=== PATIENT | male | born 1950 ===

== ENCOUNTER 2017-10-13 12:27 | Day surgery (SDC) | payer MEDICARE, BC ==
[~2017-10-13] VITALS: Ht 180.3 cm; Wt 105.1 kg
[~2017-10-13 12:27] MED LIST: ALBU90OI61 INH; AMIT25 PO; AMLO5 PO; AMOCLA875 PO; AMOX500; AMOX500 PO; AMOX875 PO; ASPI325 PO; ASPI81CH PO; ASPIRIN; ATEN100; ATEN25; ATEN25 PO; ATEN50; ATOR20 PO; CEFD300 PO; CHOL10002 PO; CILO50 PO; CLOM50A PO; CLON.5; CLON1; CLON1 PO; CLOP75; CLOP75 PO; CYAN1000; CYAN1000 PO; Cilostazol50 MG PO; DOCU100 PO; Depo-Testos200 MG/ML IM; ETOD400; FISH1000 PO; FOLI1 PO; FURO40 PO; GABA100; GABA100 PO; GABA300; HYDACE10B; HYDACE10B PO; HYDACE5; HYDACE5 PO; HYDCHL12.5 PO; HYDR1TAB94 PO; ISOMON30 PO; Isosorbide Mono60 MG PO; K-Dur20 MEQ PO; LEVE500 PO; LEVO750 PO; LEVSOD50 PO; LEVSOD75 PO; LISI10; LOSHYD; Lasix20 MG PO; METH10 PO; METO50ER PO; MIRT15 PO; MIRT15ST; NITR.4SL; NITR.4SL SL; OMEGA-3; OMEP20ER; OMEP20ER PO; PANT40 PO; PARO25; POLY17UD; POLY17UD PO; POTCHL20ER PO; Prilosec Otc20 MG PO; RABE20; ROSU10TA; ROSU10TA PO; SPIHYD; SULTRIDS PO; TAMS.4ER; TAMS.4ER PO; UROXATRAL; UROXATROL PO; VENL150ER PO; WARF3; XARELTO15 MG PO; ZOLP5 PO
[2017-10-13] MEDS ORDERED: CLON.1 (13:17)
[2017-10-13] MEDS ORDERED: IRBE75 (13:18)
== END 2017-10-13 14:49 | disposition home or self-care (01) ==
LOC: ORSCSDS 12:27
PROVIDERS: Internal Medicine Gastroenterology
PROC: 0DJ08ZZ Inspection of Upper Intestinal Tract, Via Natural or Artificial Opening Endoscopic (ICD-10-PCS; principal; 2017-10-13 14:00)
DX: R19.5 Other fecal abnormalities (principal); K25.4 Chronic or unspecified gastric ulcer with hemorrhage; D64.9 Anemia, unspecified; I25.10 Atherosclerotic heart disease of native coronary artery without angina pectoris; I10 Essential (primary) hypertension; G47.30 Sleep apnea, unspecified; E78.00 Pure hypercholesterolemia, unspecified; E66.9 Obesity, unspecified; Z68.32 Body mass index [BMI] 32.0-32.9, adult; F17.210 Nicotine dependence, cigarettes, uncomplicated; Z79.82 Long term (current) use of aspirin; Z79.899 Other long term (current) drug therapy
CPT/HCPCS: J2250; J7120

== ENCOUNTER 2017-10-31 06:30 | Observation (INO) | payer MEDICARE, BC ==
[~2017-10-31 06:30] MED LIST changes: +ALLO100 PO; +Bactrim Ds Tab1 EACH PO; +CLON.1 PO; +IRBE150 PO; +Omeprazole20 M1 PO; +Venlafaxine HC225 MG PO
[2017-10-31] MEDS ORDERED: VARE1 PO (07:14)
[2017-11-01 05:34] LABS: Anion Gap 8 mmol/L (6-16); Blood Urea Nitrogen 18 mg/dL (8-24); Bun/Creatinine Ratio 18.9 (12.0-20.0); CO2, Blood 23 mmol/L (21-32); Chloride, Blood 110 mmol/L (98-108); Creatinine, Blood 0.95 mg/dL (0.60-1.20); Glomerular Filtration Rate >60 (60-); Glucose, Blood 85 mg/dL (70-99); Sodium, Blood 141 mmol/L (136-145)
[2017-11-01] MEDS ORDERED: XARELTO15 MG PO (09:23)
[2017-11-01] MEDS ORDERED: CLOP75 PO (10:04)
== END 2017-11-01 10:13 | disposition home or self-care (01) ==
LOC: MHTC 06:30 → ICUW 15:05 → MHTC 15:31 → ICUW 15:31
PROVIDERS: Internal Medicine Interventional Cardiology
DX: I73.9 Peripheral vascular disease, unspecified (principal); M10.9 Gout, unspecified; L97.519 Non-pressure chronic ulcer of other part of right foot with unspecified severity; I10 Essential (primary) hypertension; I25.10 Atherosclerotic heart disease of native coronary artery without angina pectoris; I48.2 Chronic atrial fibrillation; F17.210 Nicotine dependence, cigarettes, uncomplicated; E78.5 Hyperlipidemia, unspecified; Z79.899 Other long term (current) drug therapy; Z79.82 Long term (current) use of aspirin
CPT/HCPCS: 0238T; 36415; 37186; 37221; 37227; 37228; 75625; 75710; 75774; 76937; 80048; 85347; 99152; 99153; C1714; C1725; C1757; C1769; C1874; C1876; C1884; C1885; C1887; C1894; C2623; G0378; J0690; J1200; J1644; J1720; J2250; J2720; J3010; J7030; J7040; Q9967

== ENCOUNTER → 2018-02-27 | Outpatient (CLI) | payer MEDICARE, BC ==
[~2018-02-27] MED LIST changes: +VARE1 PO
== END | disposition home or self-care (01) ==
LOC: LAB EV 10:54 → LAB SHORT 10:54
DX: N39.0 Urinary tract infection, site not specified (principal)
CPT/HCPCS: 87086

== ENCOUNTER 2018-06-12 08:35 | Day surgery (SDC) | payer MEDICARE, BC ==
[~2018-06-12] VITALS: Ht 177.8 cm; Wt 113.0 kg
[~2018-06-12 08:35] MED LIST changes: +CEPH500 PO; +CVS IRON PO; -GABA100 PO; +GABA300 PO; +Hydrocodone-Ap1 EA20 PO; -LEVSOD75 PO; +LEVSOD88 PO
[2018-06-12] MEDS ORDERED: ELIQUIS5 MG PO (15:56)
--- NOTE | 2018-06-12 16:10 | NUR ---
Discharge PT REMAINED A&OX3 AND DENIED ANY PAIN DURING RECOVERY. PRESCIPTIONS CALLED INTO [facility] ON [address] BY THIS NURSE. PT ABULATED TO RESTROOM AND DRESSED SELF INDEPENDANTLY. IV DC'D WITH TIP IN TACT. DISCHARGE PAPERWORK GONE OVER WITH PT. PT STATED THE UNDERSTANDING OF THE DISCHARGE EDCUATION GIVEN AND DENIED ANY QUESTIONS AT THIS TIME. PT WHEELED OUT BY THIS NURSE.
--- NOTE | 2018-06-12 16:14 | NUR ---
PLAVIX PLAVIX 300MG PO GIVEN TO PT.
--- NOTE | 2018-06-12 16:54 | NUR ---
PT WHEELED OUT BY THIS NURSE AT THIS TIME.
== END 2018-06-12 16:50 | disposition home or self-care (01) ==
LOC: MHTC 08:35
DX: I73.9 Peripheral vascular disease, unspecified (principal); G62.9 Polyneuropathy, unspecified; Z91.041 Radiographic dye allergy status; Z91.048 Other nonmedicinal substance allergy status; I10 Essential (primary) hypertension; I25.10 Atherosclerotic heart disease of native coronary artery without angina pectoris; Z89.421 Acquired absence of other right toe(s); Z79.899 Other long term (current) drug therapy; Z45.2 Encounter for adjustment and management of vascular access device
CPT/HCPCS: 37186; 37225; 37228; 37232; 75625; 75716; 75774; 76937; 99152; 99153; C1724; C1725; C1757; C1760; C1769; C1884; C1887; C1894; C2623; J1200; J1644; J1720; J2250; J2997; J3010; J7030; J7040; Q9967

== ENCOUNTER → 2018-07-10 | Outpatient (CLI) | payer MEDICARE, BC ==
[~2018-07-10] MED LIST changes: +ELIQUIS5 MG PO
== END | disposition home or self-care (01) ==
LOC: LAB SHORT 11:50 → LAB EV 11:50
DX: R30.0 Dysuria (principal)
CPT/HCPCS: 87086

== ENCOUNTER → 2018-08-03 | Outpatient (CLI) | payer MEDICARE, BC | END | disposition home or self-care (01) | LOC: LAB 11:51 → LAB SHORT 11:51 | DX: L97.509 Non-pressure chronic ulcer of other part of unspecified foot with unspecified severity (principal) | CPT/HCPCS: 87070; 87075; 87205 ==

== ENCOUNTER → 2018-08-22 | Outpatient (CLI) | payer MEDICARE, BC | END | disposition home or self-care (01) | LOC: LAB SHORT 12:15 → LAB 12:15 | DX: N39.0 Urinary tract infection, site not specified (principal) | CPT/HCPCS: 87086 ==

== ENCOUNTER → 2018-09-06 | Outpatient (CLI) | payer MEDICARE, BC | END | disposition home or self-care (01) | LOC: LAB SHORT 14:18 → LAB 14:18 | DX: M86.179 Other acute osteomyelitis, unspecified ankle and foot (principal) | CPT/HCPCS: 87070; 87075; 87205 ==

== ENCOUNTER 2018-09-11 07:31 | Day surgery (SDC) | payer MEDICARE, BC ==
[~2018-09-11] VITALS: Ht 177.8 cm; Wt 112.4 kg
[2018-09-11] MEDS ORDERED: ATEN50 PO (08:06)
--- NOTE | 2018-09-11 08:20 | NUR ---
09/11/18 0820 Karen Odonnell V PT RETING IN BED, SIDE RAILS IN PLACE, CALL LIGHT WITHIN REACH, VSS, PT'S AT BEDSIDE. PT TEACHING COMPLETED. PT DENIES PAIN, DISCOMFORT AND QUESTIONS AT THIS TIME.
--- NOTE | 2018-09-11 09:34 | NUR ---
09/11/18 0934 Karen Odonnell V [address] BEAL
== END 2018-09-11 10:23 | disposition home or self-care (01) ==
LOC: ORSCSDS 07:31
PROVIDERS: Internal Medicine Gastroenterology
PROC: 0DJ08ZZ Inspection of Upper Intestinal Tract, Via Natural or Artificial Opening Endoscopic (ICD-10-PCS; principal; 2018-09-11 09:00)
DX: K92.1 Melena (principal); K92.2 Gastrointestinal hemorrhage, unspecified; I10 Essential (primary) hypertension; E78.00 Pure hypercholesterolemia, unspecified; I25.10 Atherosclerotic heart disease of native coronary artery without angina pectoris; Z95.1 Presence of aortocoronary bypass graft; I48.0 Paroxysmal atrial fibrillation; G47.33 Obstructive sleep apnea (adult) (pediatric); F17.210 Nicotine dependence, cigarettes, uncomplicated; Z79.01 Long term (current) use of anticoagulants; Z79.899 Other long term (current) drug therapy
CPT/HCPCS: J2704; J7120

== ENCOUNTER 2019-02-04 20:21 | Inpatient (IN) | payer MEDICARE, BC ==
[~2019-02-04] VITALS: Ht 177.8 cm; Wt 114.9 kg
[~2019-02-04 20:21] MED LIST changes: +ATEN100 PO; -LEVSOD88 PO; +Synthroid88 MCG PO
[2019-02-04] MEDS ORDERED: OXYB5 PO (20:37)
[2019-02-04 20:55] LABS: BASOPHILS ABSOLUTE AUTO 0.08 K/mm3 (0.00-0.23); BASOPHILS PERCENT AUTO 1 % (0-2); EOSINOPHILS ABSOLUTE AUTO 0.27 K/mm3 (0.00-0.68); EOSINOPHILS PERCENT AUTO 3 % (0-6); Hematocrit 34.8 % (37.0-53.0); Hemoglobin 11.4 g/dL (13.5-17.5); IMMATURE GRAN ABSOLUTE AUTO 0.05 K/mm3 (0.00-0.10); IMMATURE GRAN PERCENT AUTO 1 % (0-1); LYMPHOCYTES ABSOLUTE AUTO 1.18 K/mm3 (0.84-5.20); LYMPHOCYTES PERCENT AUTO 12 % (21-46); MONOCYTES ABSOLUTE AUTO 0.91 K/mm3 (0.16-1.47); MONOCYTES PERCENT AUTO 9 % (4-13); Mean Corpuscular HGB 34.5 pg (26.0-34.0); Mean Corpuscular HGB Conc 32.8 g/dL (31.5-36.5); Mean Corpuscular Volume 106 fL (80-100); Mean Platelet Volume 11.2 fL (9.1-12.4); NEUTROPHILS ABSOLUTE AUTO 7.63 K/mm3 (1.96-9.15); NEUTROPHILS PERCENT AUTO 75 % (41-73); Platelet Count 144 K/mm3 (150-400); RDW Coefficient Variation 14.1 % (11.7-14.2); RDW Standard Deviation 54.9 fL (35.1-46.3); White Blood Cell Count 10.12 K/mm3 (4.00-11.30)
[2019-02-04 21:19] LABS: Alanine Aminotransfer (ALT/SGP 58 U/L (12-78); Albumin, Blood 3.7 g/dL (3.4-5.0); Albumin/Globulin Ratio 0.9 (0.8-1.8); Alk Phos 98 U/L (50-136); Anion Gap 8 mmol/L (6-16); Aspartate Aminotrans (AST/SGOT 99 U/L (12-37); Bilirubin, Total 1.3 mg/dL (0.1-1.0); Blood Urea Nitrogen 27 mg/dL (8-24); Bun/Creatinine Ratio 21.6 (12.0-20.0); CO2, Blood 21 mmol/L (21-32); Calcium, Blood 9.8 mg/dL (8.5-10.1); Chloride, Blood 103 mmol/L (98-108); Creatinine, Blood 1.25 mg/dL (0.60-1.20); Globulin, Blood 4.3 g/dL (2.2-4.0); Glomerular Filtration Rate >60 (60-); Glucose, Blood 113 mg/dL (70-99); Sodium, Blood 132 mmol/L (136-145)
[2019-02-04 21:47] LABS: International Normalized Ratio 1.02; Prothrombin Time Results 10.8 Sec (9.7-11.5)
[2019-02-04 22:05] LABS: CHOL/HDL RATIO 4.7; Cholesterol 165 mg/dL (50-200); HDL Cholesterol 35 mg/dL (>39); LDL/HDL RATIO 1.8; Low Density Lipoprotein Chol 62 mg/dL (0-110); Triglycerides 338 mg/dL (30-160); Very Low Density Lipoprot Chol 67 mg/dL (6-32)
[2019-02-05 03:58] LABS: BASOPHILS ABSOLUTE AUTO 0.07 K/mm3 (0.00-0.23); BASOPHILS PERCENT AUTO 1 % (0-2); EOSINOPHILS ABSOLUTE AUTO 0.02 K/mm3 (0.00-0.68); EOSINOPHILS PERCENT AUTO 0 % (0-6); Hematocrit 36.3 % (37.0-53.0); IMMATURE GRAN ABSOLUTE AUTO 0.07 K/mm3 (0.00-0.10); IMMATURE GRAN PERCENT AUTO 1 % (0-1); LYMPHOCYTES ABSOLUTE AUTO 0.65 K/mm3 (0.84-5.20); LYMPHOCYTES PERCENT AUTO 7 % (21-46); MONOCYTES ABSOLUTE AUTO 0.37 K/mm3 (0.16-1.47); MONOCYTES PERCENT AUTO 4 % (4-13); Mean Corpuscular HGB 35.1 pg (26.0-34.0); Mean Corpuscular HGB Conc 33.1 g/dL (31.5-36.5); Mean Corpuscular Volume 106 fL (80-100); Mean Platelet Volume 11.6 fL (9.1-12.4); NEUTROPHILS PERCENT AUTO 88 % (41-73); Platelet Count 142 K/mm3 (150-400); RDW Coefficient Variation 14.3 % (11.7-14.2); RDW Standard Deviation 55.9 fL (35.1-46.3); Red Blood Cell Count 3.42 M/mm3 (4.30-5.90); White Blood Cell Count 9.68 K/mm3 (4.00-11.30)
[2019-02-05 04:16] LABS: Anion Gap 8 mmol/L (6-16); Blood Urea Nitrogen 28 mg/dL (8-24); Bun/Creatinine Ratio 25.2 (12.0-20.0); CO2, Blood 24 mmol/L (21-32); Calcium, Blood 10.1 mg/dL (8.5-10.1); Chloride, Blood 103 mmol/L (98-108); Creatinine, Blood 1.11 mg/dL (0.60-1.20); Glomerular Filtration Rate >60 (60-); Glucose, Blood 160 mg/dL (70-99); Sodium, Blood 135 mmol/L (136-145)
[2019-02-05] MEDS ORDERED: Vitamin D2000 UNIT PO (06:36)
[2019-02-05] MEDS ORDERED: TAMS.4ER PO (06:38)
[2019-02-05] MEDS ORDERED: PANT40 PO (06:40)
--- NOTE | 2019-02-05 07:29 | NUR ---
ADMIT NOTE/SHIFT SUMMARY PATIENT PLEASENT AND COOEPRATIVE UPON ADMIT. PATIENT ABLE TO TRANSFER SELF FROM THE RNEY TO THE BED WITH SBA. PATIENT DENIED ANY CHEST PAIN UPON ADMIT AND THROUGHOUT THE SHIFT. PATIENT DID STATE THAT HE FELT SOB AT TIMES AND DID REQUEST SEVERAL BREATHING TREATMENTS. PATIENT ON 2L O2. PATIENT ALSO REPORTED THAT HE WAS FEELING A LITTLE, "BLOATED." HEPARIN GTT RUNNING PER ORDERS. PATIENT'S STAYED THE NIGHT AT THE BEDSIDE. PATIENT APPEARED TO SLEEP ON AND OFF THROUGHOUT THE NIGHT. REPORT GIVEN TO ONCOMING RN.
--- NOTE | 2019-02-05 07:32 | NUR ---
pt laying in bed, in room asleep, he is awake a/ox3, pleasant and cooperative with care, follows commands well, denies pain, but reports sob, and asking for breathing tx, lungs are clear dim in bases, resp even and unlabored at this time, is currently on 2 liters, but is feeling sob and is in low 90's, bumped him up to 3 which is helpful, recieved a breathing tx at this time, hrr, tele in place running sr per monitor see strip, no edema noted, ppp faint, cap refill <3 sec, vs stable, afebrile, iv site is clear and patent, infusing heperin gtt as ordered, pt reports he has trouble voiding, just doesn't empty out, is an ongoing problem, skin c/i, but he is cool and clamy, irving lorenzo, call light in reach, plan is for angio this am.
--- NOTE | 2019-02-05 11:59 | NUR ---
pt taken to [facility] via bed with [facility] nurses and in attendence.
--- NOTE | 2019-02-05 18:18 | NUR ---
WORKING ON DEFLATING TR BAND, A SCANT AMOUNT OF DRAINAGE NOTED AROUND PERIMETER OF BAND, NO ACTIVE BLEEING NOTED, PT DOING OK, DID MEDICATE FOR BACK PAIN. CALL LIGHT IN REACH.
--- NOTE | 2019-02-05 19:36 | NUR ---
PATIENT HAS TR BAND IN PLACE REPORTED 2CC OF AIR REMAINING. NO NOTED SIGNS OF BLEEDING NOTED. TAKEN AIR OUT LEFT TR BAND IN PLACE AT THIS TIME WITH ARM BOARD.
--- NOTE | 2019-02-06 | NUR ---
PATIENT TR BAND TAKEN COMPLETELY OFF WHILE AWAKE AND PLACE DRESSING OVER SITE. NO SIGNS OF BLEEDING FROM LEFT RADIAL SITE.
--- NOTE | 2019-02-06 05:32 | NUR ---
PATIENT MOVING AROUND INDEPENDENTLY IN BED USING URINAL WHEN NEEDED. URINE IS HARITHA IN COLOR. PATIENT DENIES ANY PAIN. PATIENT HAS SHOWED NO SIGNS OF BLEEDING FROM LEFT RADIAL SITE. PATIENT REFUSED CPAP TONIGHT AND SLEPT WITH 2L OF OXYGEN PER NC. PATIENT STATES HE HAS SLEPT OK TONIGHT.
--- NOTE | 2019-02-06 07:45 | NUR ---
RECEIVED REPORT FROM ARON MONZON, ASSUMED CARE, PATIENT IS AWAKE, ALERT AND ORIENTED, LYING IN BED WATCHING TV, ARMBOARD ON L WRIST, TR BRAND REMOVED, LEFT RADIAL ACCESS SITE COVERED WITH OPSITE, NO BLEEDING, SOFT, NONTENDER, NO HEMATOMA NOTED, PATIENT REPORTS NO CHEST PAIN/PRESSURE, LUNG SOUNDS ARE CLEAR THROUGHOUT, BOWELT TONES ARE HYPERACTIVE, PATIENT USES URINAL TO VOID, PEDAL PULSES ARE PRESENT AND PALPABLE, CALL LIGHT IN REACH, WILL CONTINUE TO MONITOR.
--- NOTE | 2019-02-06 08:15 | NUR ---
PATIENT SITTING AT SIDE OF BED EATING BREAKFAST, TAKING ALL HIS AM PILLS AT ONE TIME WITH SIPS OF WATER, NO PROBLEM SWALLOWING, HEPARIN INJECTION SQ, TOLERATED WELL, DENIES ANY PAIN, AFEBRILE, CALL LIGHT IN REACH, WILL CONTINUE TO MONITOR.
[2019-02-06 09:53] LABS: BASOPHILS ABSOLUTE AUTO 0.04 K/mm3 (0.00-0.23); BASOPHILS PERCENT AUTO 0 % (0-2); EOSINOPHILS ABSOLUTE AUTO 0.01 K/mm3 (0.00-0.68); EOSINOPHILS PERCENT AUTO 0 % (0-6); Hematocrit 32.8 % (37.0-53.0); Hemoglobin 10.7 g/dL (13.5-17.5); IMMATURE GRAN ABSOLUTE AUTO 0.14 K/mm3 (0.00-0.10); IMMATURE GRAN PERCENT AUTO 1 % (0-1); LYMPHOCYTES ABSOLUTE AUTO 1.18 K/mm3 (0.84-5.20); LYMPHOCYTES PERCENT AUTO 10 % (21-46); MONOCYTES ABSOLUTE AUTO 0.74 K/mm3 (0.16-1.47); MONOCYTES PERCENT AUTO 6 % (4-13); Mean Corpuscular HGB Conc 32.6 g/dL (31.5-36.5); Mean Corpuscular Volume 107 fL (80-100); Mean Platelet Volume 11.1 fL (9.1-12.4); NEUTROPHILS ABSOLUTE AUTO 10.12 K/mm3 (1.96-9.15); NEUTROPHILS PERCENT AUTO 83 % (41-73); NRBC ABSOLUTE 0.02 K/mm3 (0.00-0.02); NRBC Auto 0.2 /100 WBC (0.0-0.2); Platelet Count 157 K/mm3 (150-400); RDW Coefficient Variation 14.6 % (11.7-14.2); RDW Standard Deviation 57.8 fL (35.1-46.3); Red Blood Cell Count 3.06 M/mm3 (4.30-5.90); White Blood Cell Count 12.23 K/mm3 (4.00-11.30)
--- NOTE | 2019-02-06 09:58 | NUR ---
PATIENT BECOMING "ANTSY" TO GO HOME, ASKING IF DR. GORDON HAS BEEN BY YET, OR WHEN HE IS COMING TO SEE HIM AND DO THE DISCHARGE, AT BEDSIDE, CALL LIGHT IN REACH, WILL CONTINUE TO MONITOR.
--- NOTE | 2019-02-06 10:11 | NUR ---
DR. BRIDGET GORDON IN TO SEE PATIENT, NEW ORDERS RECEIVED.
[2019-02-06 10:23] LABS: Anion Gap 8 mmol/L (6-16); Blood Urea Nitrogen 37 mg/dL (8-24); Bun/Creatinine Ratio 31.1 (12.0-20.0); CO2, Blood 24 mmol/L (21-32); Chloride, Blood 106 mmol/L (98-108); Creatinine, Blood 1.19 mg/dL (0.60-1.20); Glomerular Filtration Rate >60 (60-); Glucose, Blood 138 mg/dL (70-99); Potassium, Blood 4.1 mmol/L (3.5-5.5); Sodium, Blood 138 mmol/L (136-145)
--- NOTE | 2019-02-06 11:27 | NUR ---
pATIENT C/O PAIN IN LOW BACK AND SHOULDERS, RECEIVED NORCO 10 MG PO, WILL CONTINUE TO MONITOR.
--- NOTE | 2019-02-06 14:22 | NUR ---
DR. GORDON IN TO SEE PATIENT AGAIN, WILL CONTINUE TO MONITOR.
[2019-02-06] MEDS ORDERED: ASPI81CH PO (15:34)
[2019-02-06] MEDS ORDERED: B-1100 MG PO (15:35)
--- NOTE | 2019-02-06 16:06 | NUR ---
PATIENT RECEIVED ANOTHER NORCO 10 MP PO FOR BACK PAIN, PATIENT IS DISCHARGED TO HOME AFTER HOME O2 STUDY, BUT WAITING FOR PORTABLE OXYGEN TANK TO ARRIVE, AT BEDSIDE, CALL LIGHT IN REACH, WILL CONTINUE TO MONITOR.
--- NOTE | 2019-02-06 17:00 | NUR ---
PATIENT DISCHARGED TO HOME, DISCHARGE DOCUMENTATION VERBAL AND WRITTEN PROVIDED AND EXPLAINED, PATIENT AND VERBALIZED UNDERSTANDING, PATIENT SIGNED DISCHARGE DOCUMENT, HOME O2 DELIVERED EARLIER AND EXPLAINED TO PATIENT, PATIENT LEFT HOSPITAL VIA WHEELCHAIR WITH ALL HIS MEDICATIONS AND BELONGINGS, WITH CAR AT ER ENTRANCE TO PROVIDE RIDE HOME.
[2019-03-18] MEDS ORDERED: NITR.4SL SL (16:59)
== END 2019-02-06 17:16 | disposition home or self-care (01) | DRG 280 ==
LOC: ER 20:21 → PCU 21:47
PROVIDERS: Emergency Medicine; Family Medicine; ADMIT Family Medicine
PROC: B2111ZZ Fluoroscopy of Multiple Coronary Arteries using Low Osmolar Contrast (ICD-10-PCS; principal; 2019-02-05)
PROC: B2181ZZ Fluoroscopy of Left Internal Mammary Bypass Graft using Low Osmolar Contrast (ICD-10-PCS; 2019-02-05)
DX: I21.4 Non-ST elevation (NSTEMI) myocardial infarction (principal); I50.21 Acute systolic (congestive) heart failure; J96.01 Acute respiratory failure with hypoxia; I42.0 Dilated cardiomyopathy; I13.0 Hypertensive heart and chronic kidney disease with heart failure and stage 1 through stage 4 chronic kidney disease, or unspecified chronic kidney disease; E87.1 Hypo-osmolality and hyponatremia; N18.3 Chronic kidney disease, stage 3 (moderate); I48.91 Unspecified atrial fibrillation; G47.33 Obstructive sleep apnea (adult) (pediatric); E03.9 Hypothyroidism, unspecified; E78.5 Hyperlipidemia, unspecified; D69.6 Thrombocytopenia, unspecified; D63.1 Anemia in chronic kidney disease; I73.9 Peripheral vascular disease, unspecified; I25.10 Atherosclerotic heart disease of native coronary artery without angina pectoris; E66.01 Morbid (severe) obesity due to excess calories; Z68.36 Body mass index [BMI] 36.0-36.9, adult; Z95.5 Presence of coronary angioplasty implant and graft; Z95.1 Presence of aortocoronary bypass graft; Z87.891 Personal history of nicotine dependence; Z88.8 Allergy status to other drugs, medicaments and biological substances; Z79.02 Long term (current) use of antithrombotics/antiplatelets; Z79.899 Other long term (current) drug therapy; Z89.421 Acquired absence of other right toe(s); Z95.828 Presence of other vascular implants and grafts
CPT/HCPCS: 36415; 71045; 76937; 80048; 80053; 80061; 83880; 84484; 85025; 85610; 85730; 93005; 93010; 93455; 94640; 94660; 94761; 94762; 96365; 96375; 99152; 99153; 99285-25; C1769; C1894; C8923; J1200; J1644; J2250; J3010; J7030; J7040; J7512; Q9957; Q9967

== ENCOUNTER 2019-04-07 11:34 | Inpatient (IN) | payer MEDICARE, BC ==
[~2019-04-07] VITALS: Ht 177.8 cm; Wt 115.0 kg
[~2019-04-07 11:34] MED LIST changes: +B-1100 MG PO; +OXYB5 PO; +Vitamin D2000 UNIT PO
[2019-04-07 12:18] LABS: BASOPHILS ABSOLUTE AUTO 0.07 K/mm3 (0.00-0.23); BASOPHILS PERCENT AUTO 1 % (0-2); EOSINOPHILS ABSOLUTE AUTO 0.11 K/mm3 (0.00-0.68); EOSINOPHILS PERCENT AUTO 1 % (0-6); Hematocrit 32.5 % (37.0-53.0); Hemoglobin 10.5 g/dL (13.5-17.5); IMMATURE GRAN ABSOLUTE AUTO 0.05 K/mm3 (0.00-0.10); IMMATURE GRAN PERCENT AUTO 1 % (0-1); LYMPHOCYTES ABSOLUTE AUTO 0.76 K/mm3 (0.84-5.20); LYMPHOCYTES PERCENT AUTO 9 % (21-46); MONOCYTES ABSOLUTE AUTO 0.58 K/mm3 (0.16-1.47); MONOCYTES PERCENT AUTO 7 % (4-13); Mean Corpuscular HGB Conc 32.3 g/dL (31.5-36.5); Mean Corpuscular Volume 108 fL (80-100); Mean Platelet Volume 11.2 fL (9.1-12.4); NEUTROPHILS ABSOLUTE AUTO 6.71 K/mm3 (1.96-9.15); NEUTROPHILS PERCENT AUTO 81 % (41-73); Platelet Count 153 K/mm3 (150-400); RDW Coefficient Variation 15.3 % (11.7-14.2); RDW Standard Deviation 59.5 fL (35.1-46.3); White Blood Cell Count 8.28 K/mm3 (4.00-11.30)
[2019-04-07 12:41] LABS: Alanine Aminotransfer (ALT/SGP 38 U/L (12-78); Albumin, Blood 3.5 g/dL (3.4-5.0); Albumin/Globulin Ratio 0.8 (0.8-1.8); Alk Phos 78 U/L (50-136); Anion Gap 8 mmol/L (6-16); Aspartate Aminotrans (AST/SGOT 38 U/L (12-37); Bilirubin, Total 0.8 mg/dL (0.1-1.0); Blood Urea Nitrogen 21 mg/dL (8-24); Bun/Creatinine Ratio 18.9 (12.0-20.0); CO2, Blood 23 mmol/L (21-32); Calcium, Blood 9.6 mg/dL (8.5-10.1); Chloride, Blood 108 mmol/L (98-108); Creatinine, Blood 1.11 mg/dL (0.60-1.20); Globulin, Blood 4.2 g/dL (2.2-4.0); Glomerular Filtration Rate >60 (60-); Glucose, Blood 113 mg/dL (70-99); Potassium, Blood 4.5 mmol/L (3.5-5.5); Sodium, Blood 139 mmol/L (136-145); Total Protein, Blood 7.7 g/dL (6.4-8.2); Troponin I 0.082 ng/mL (0.000-0.040)
[2019-04-07 18:06] LABS: Bilirubin, Urine Neg (Neg); Blood, Urine 1+ (Neg); Glucose Qualitative, Urine Neg (Neg); Ketones, Urine Neg (Neg); Leukocyte Esterase, Urine 3+ (Neg); Nitrite, Urine Neg (Neg); Protein, Urine Neg (Neg); Urobilinogen, Urine NORM (Normal)
[2019-04-07 18:25] LABS: Appearance, Urine Hazy (Clear); Color, Urine Yellow (P-Yellow)
[2019-04-07 18:31] LABS: Red Blood Cells, Urine 0-2 /hpf (0-2); Squamous Epithelial Cells Few /hpf (Few); White Blood Cells, Urine 25-50 /hpf (0-5)
[2019-04-07 18:32] LABS: Bacteria Many /hpf
--- NOTE | 2019-04-07 18:55 | NUR ---
ADMIT NOTE RECEIVED REPORT FROM ARON MONZON IN ED. PT TO ROOM AT 1650 VIA GURJOVI, SBA TRANSFERED TO BED. PT ORIENTED TO ROOM AND CALL LIGHT. EDUCATED ON FALL RISK AND NEED TO CALL FOR ASSISTANTS. PT REPORTS HAVING INCREASED SOB OVER THE LAST TWO DAYS. NEEDING INCREASED O2 AT HOME. PT A&Ox4. CALM AND COOPERATIVE WITH CARE. SBA IN ROOM. PT RESTING IN BED WITH HOB 30 DEGREE. BREATHING EVEN AND UNLABORED. LS CLEAR. SPO2 >92% ON 2L O2 VIA NC. REPORTS FEELING SOB AT REST. NITRO PASTE IN PLACE IN RIGHT UPPER CHEST. PT REPORTS CHRONIC PAIN IN LOWER BACK, MEDCIATED IN ED. PT TOOK AM MEDS PER MED REC, HELD THIS EVENING. PT RECEIVED IV LASIX. DR NICKERSON AT BEDSIDE THIS EVENING, ECHO PLANNED FOR TOMORROW. VSS. NO OTHER ACUTE CHANGES NOTED. REPORT GIVEN TO ONCOMING RN.
--- NOTE | 2019-04-07 19:10 | NUR ---
ASSUME CARES: REPORT RECIEVED FROM LETICIA OFF GOING RN. MONITOR INTACT SHOWING A FIB HEART RATE 80'S-130'S.LUNGS CLEAR UPPER LOBES WITH DISTANT DECREASED SOUNDS IN THE BASES BECOMES SHORT OF BREATH WITH ANY EXERTION. BED CHANGED SECONDARY TO BEING BROKEN. GAIT STEADY WITH MINIMAL ASSIST. ABDOMEN SOFT WITH BOWEL SOUNDS FOUR QUADS. VOIDS HARITHA URINE PER URINAL. DRESSING TO R FOOT/ANKLE INTACT. CONTINUE TO MONITOR AND REPORT CHANGE INPATIENT CONDITION.
[2019-04-08 00:55] LABS: Anion Gap 9 mmol/L (6-16); Blood Urea Nitrogen 21 mg/dL (8-24); Bun/Creatinine Ratio 16.4 (12.0-20.0); CHOL/HDL RATIO 4.2; CO2, Blood 26 mmol/L (21-32); Calcium, Blood 9.6 mg/dL (8.5-10.1); Chloride, Blood 104 mmol/L (98-108); Cholesterol 140 mg/dL (50-200); Creatinine, Blood 1.28 mg/dL (0.60-1.20); Glomerular Filtration Rate 59 (60-); Glucose, Blood 103 mg/dL (70-99); HDL Cholesterol 33 mg/dL (>39); LDL/HDL RATIO 1.9; Low Density Lipoprotein Chol 61 mg/dL (0-110); Potassium, Blood 4.1 mmol/L (3.5-5.5); Sodium, Blood 139 mmol/L (136-145); Triglycerides 228 mg/dL (30-160); Troponin I 0.081 ng/mL (0.000-0.040); Very Low Density Lipoprot Chol 45 mg/dL (6-32)
[2019-04-08 06:23] LABS: Alanine Aminotransfer (ALT/SGP 35 U/L (12-78); Aspartate Aminotrans (AST/SGOT 36 U/L (12-37)
--- NOTE | 2019-04-08 06:33 | NUR ---
shift summary: rests quietly when undisturbed dr moore in to see patient. monitor intact showing a fib heart rate 80's-110's. medicated with norco for low back pain. abdomen soft with bowel sounds four quads. voids agnes urine per uirnal.dressing to l ankle dry intact. continue to monitor and report change in patient condition
--- NOTE | 2019-04-08 12:02 | NUR ---
Echocardiogram using 0.6ml of Definity contrast performed.
--- NOTE | 2019-04-08 14:42 | NUR ---
ASSUMED CARE APPROXIMATELY 0700; PT ALERT AND COMPLIANT W/ CARE; AT BEDSIDE IN AM; PICTURES TAKEN OF R FOOT; SPOUSE REPLACED BANDAGE; PT IN AFIB HR IN THE 90'S PER GROCERY SPECIALIST; PT USES URINAL AT BEDSIDE, URINATING CLEAR YELLOW URINE; PT C/O CHRONIC LOWER BACK PAIN; PT REPOSITIONED AND MEDICATED PER EMAR; CALL LIGHT IN REACH; BED IN LOWEST POSITION; WILL CONTINUE TO MONITOR AND ASSESS UNTIL HAND OFF TO NOC RN.
--- NOTE | 2019-04-08 18:04 | NUR ---
UPDATE PT UP AT SIDE OF BED; VSS; SPOUSE WILL BE STAYING AT BEDSIDE; RT CALLED TO ASSIST W/ CPAP; WILL CONTINUE TO MONITOR
[2019-04-09 04:17] LABS: BASOPHILS ABSOLUTE AUTO 0.06 K/mm3 (0.00-0.23); BASOPHILS PERCENT AUTO 1 % (0-2); EOSINOPHILS ABSOLUTE AUTO 0.26 K/mm3 (0.00-0.68); EOSINOPHILS PERCENT AUTO 3 % (0-6); Hematocrit 29.4 % (37.0-53.0); Hemoglobin 9.4 g/dL (13.5-17.5); IMMATURE GRAN ABSOLUTE AUTO 0.05 K/mm3 (0.00-0.10); IMMATURE GRAN PERCENT AUTO 1 % (0-1); LYMPHOCYTES ABSOLUTE AUTO 1.51 K/mm3 (0.84-5.20); LYMPHOCYTES PERCENT AUTO 19 % (21-46); MONOCYTES ABSOLUTE AUTO 0.78 K/mm3 (0.16-1.47); MONOCYTES PERCENT AUTO 10 % (4-13); Mean Corpuscular HGB 34.8 pg (26.0-34.0); Mean Corpuscular Volume 109 fL (80-100); Mean Platelet Volume 11.2 fL (9.1-12.4); NEUTROPHILS PERCENT AUTO 67 % (41-73); Platelet Count 135 K/mm3 (150-400); RDW Coefficient Variation 15.9 % (11.7-14.2); White Blood Cell Count 8.06 K/mm3 (4.00-11.30)
[2019-04-09 04:33] LABS: Bun/Creatinine Ratio 19.9 (12.0-20.0); Creatinine, Blood 1.36 mg/dL (0.60-1.20); Potassium, Blood 3.7 mmol/L (3.5-5.5)
--- NOTE | 2019-04-09 06:13 | NUR ---
Shift Summary No acute concerns noted overnight, pt remains VSS all shift, no apparent sign of distress. Pt is breathing easy, even, unlabored on CPAP with 4L bleed in while sleeping, o2 saturations maintained >94%. Pt placed in 2L NC at approx 0545 and is currently breathing easy and unlabored. No changes noted from initial shift assessment. Pt remains alert and oriented, conversing appropriately with staff, able to make needs known and uses call light appropriately. Pt with c/o pain once this shift, medicated per emar and relief stated by pt. Pt with fluid restriction of 1500 ml, pt PO intake of 450 this shift. Will continue to monitor and provide care until day RN assumes care.
[2019-04-09] MEDS ORDERED: ACET325 PO (11:39)
[2019-04-09] MEDS ORDERED: FURO40 PO (11:40)
[2019-04-09] MEDS ORDERED: POTCHL20ER PO (11:42)
--- NOTE | 2019-04-09 12:24 | NUR ---
DISCHARGE NOTE PT STABLE FOR DISCHARGE. IV REMOVED. DISCHARGE INSTRUCTIONS REVIEWED WITH PT AND SPOUSE. PT AND SPOUSE VERBALIZE UNDERSTANDING AND DENY QUESTIONS. PT DISCHARGE VIA WHEELCHAIR TO WAITING CAR WITH BELONGINGS.
== END 2019-04-09 12:22 | disposition home or self-care (01) | DRG 291 ==
LOC: ER 11:34 → PCU 11:35
PROVIDERS: Emergency Medicine; Internal Medicine Cardiovascular Disease; ADMIT Internal Medicine
DX: I13.0 Hypertensive heart and chronic kidney disease with heart failure and stage 1 through stage 4 chronic kidney disease, or unspecified chronic kidney disease (principal); I50.33 Acute on chronic diastolic (congestive) heart failure; I48.20 Chronic atrial fibrillation, unspecified; J96.11 Chronic respiratory failure with hypoxia; J44.9 Chronic obstructive pulmonary disease, unspecified; I27.20 Pulmonary hypertension, unspecified; I35.0 Nonrheumatic aortic (valve) stenosis; I25.10 Atherosclerotic heart disease of native coronary artery without angina pectoris; I73.9 Peripheral vascular disease, unspecified; D63.8 Anemia in other chronic diseases classified elsewhere; D69.6 Thrombocytopenia, unspecified; G47.33 Obstructive sleep apnea (adult) (pediatric); E66.9 Obesity, unspecified; I25.5 Ischemic cardiomyopathy; N18.3 Chronic kidney disease, stage 3 (moderate); E78.5 Hyperlipidemia, unspecified; G62.9 Polyneuropathy, unspecified; M10.9 Gout, unspecified; E03.9 Hypothyroidism, unspecified; E66.01 Morbid (severe) obesity due to excess calories; Z68.37 Body mass index [BMI] 37.0-37.9, adult; Z99.81 Dependence on supplemental oxygen; Z87.891 Personal history of nicotine dependence; I25.2 Old myocardial infarction; Z79.02 Long term (current) use of antithrombotics/antiplatelets; Z79.82 Long term (current) use of aspirin; Z79.899 Other long term (current) drug therapy; Z95.1 Presence of aortocoronary bypass graft; Z89.421 Acquired absence of other right toe(s)
CPT/HCPCS: 36415; 71046; 80048; 80053; 80061; 81001; 83690; 83880; 84443; 84450; 84460; 84484; 85025; 87086; 93005; 93010; 94660; 94762; 96372-59; 96374; 99285-25; A9270-GY; C8929; J1650; J1940; Q9957

== ENCOUNTER 2019-04-30 13:37 | Day surgery (SDC) | payer MEDICARE, BC ==
[~2019-04-30 13:37] MED LIST changes: +ACET325 PO
== END 2019-04-30 23:04 | disposition home or self-care (01) ==
LOC: WOUND 13:37
DX: L97.512 Non-pressure chronic ulcer of other part of right foot with fat layer exposed (principal); I73.9 Peripheral vascular disease, unspecified; I10 Essential (primary) hypertension; E78.00 Pure hypercholesterolemia, unspecified; Z88.8 Allergy status to other drugs, medicaments and biological substances; Z91.041 Radiographic dye allergy status; Z87.891 Personal history of nicotine dependence; Z79.02 Long term (current) use of antithrombotics/antiplatelets; Z79.899 Other long term (current) drug therapy; Z79.82 Long term (current) use of aspirin
CPT/HCPCS: G0463

== ENCOUNTER 2019-05-09 09:54 | Day surgery (SDC) | payer MEDICARE, BC | END 2019-05-09 23:10 | disposition home or self-care (01) | LOC: WOUND 09:54 | DX: I96 Gangrene, not elsewhere classified (principal); L97.512 Non-pressure chronic ulcer of other part of right foot with fat layer exposed; I97.89 Other postprocedural complications and disorders of the circulatory system, not elsewhere classified; I11.0 Hypertensive heart disease with heart failure; I50.9 Heart failure, unspecified; E78.00 Pure hypercholesterolemia, unspecified; I25.10 Atherosclerotic heart disease of native coronary artery without angina pectoris; I48.91 Unspecified atrial fibrillation; E07.9 Disorder of thyroid, unspecified; F17.200 Nicotine dependence, unspecified, uncomplicated; J44.9 Chronic obstructive pulmonary disease, unspecified; D64.9 Anemia, unspecified; G47.30 Sleep apnea, unspecified; M10.9 Gout, unspecified; Z95.1 Presence of aortocoronary bypass graft; Z95.5 Presence of coronary angioplasty implant and graft; Z79.02 Long term (current) use of antithrombotics/antiplatelets; Z79.82 Long term (current) use of aspirin; Z79.899 Other long term (current) drug therapy; Y83.8 Other surgical procedures as the cause of abnormal reaction of the patient, or of later complication, without mention of misadventure at the time of the procedure ==

== ENCOUNTER 2019-05-14 07:50 | Day surgery (SDC) | payer MEDICARE, BC | END 2019-05-14 23:15 | disposition home or self-care (01) | LOC: WOUND 07:50 | DX: L97.512 Non-pressure chronic ulcer of other part of right foot with fat layer exposed (principal); I10 Essential (primary) hypertension; E78.00 Pure hypercholesterolemia, unspecified; I73.9 Peripheral vascular disease, unspecified; F17.200 Nicotine dependence, unspecified, uncomplicated; Z95.5 Presence of coronary angioplasty implant and graft; Z79.899 Other long term (current) drug therapy; Z79.02 Long term (current) use of antithrombotics/antiplatelets; Z79.82 Long term (current) use of aspirin | CPT/HCPCS: G0463 ==

== ENCOUNTER 2019-05-22 14:55 | Day surgery (SDC) | payer MEDICARE, BC | END 2019-05-22 22:50 | disposition home or self-care (01) | LOC: WOUND 14:55 | DX: L97.515 Non-pressure chronic ulcer of other part of right foot with muscle involvement without evidence of necrosis (principal); I10 Essential (primary) hypertension; E78.00 Pure hypercholesterolemia, unspecified; I25.10 Atherosclerotic heart disease of native coronary artery without angina pectoris; F17.200 Nicotine dependence, unspecified, uncomplicated; Z95.5 Presence of coronary angioplasty implant and graft; Z79.899 Other long term (current) drug therapy; Z79.82 Long term (current) use of aspirin ==

== ENCOUNTER 2019-06-04 12:43 | Day surgery (SDC) | payer MEDICARE, BC | END 2019-06-04 22:36 | disposition home or self-care (01) | LOC: WOUND 12:43 | DX: L97.512 Non-pressure chronic ulcer of other part of right foot with fat layer exposed (principal); I73.9 Peripheral vascular disease, unspecified; E78.00 Pure hypercholesterolemia, unspecified; I10 Essential (primary) hypertension; I48.91 Unspecified atrial fibrillation; F17.200 Nicotine dependence, unspecified, uncomplicated; E07.9 Disorder of thyroid, unspecified; Z79.02 Long term (current) use of antithrombotics/antiplatelets; Z79.82 Long term (current) use of aspirin; Z79.899 Other long term (current) drug therapy; Z95.1 Presence of aortocoronary bypass graft; Z95.5 Presence of coronary angioplasty implant and graft; Z91.041 Radiographic dye allergy status; Z91.048 Other nonmedicinal substance allergy status | CPT/HCPCS: G0463 ==

== ENCOUNTER 2019-06-07 01:48 | Day surgery (SDC) | payer MEDICARE, BC | END 2019-06-07 23:31 | disposition home or self-care (01) | LOC: WOUND 01:48 | DX: T81.89XA Other complications of procedures, not elsewhere classified, initial encounter (principal); L97.812 Non-pressure chronic ulcer of other part of right lower leg with fat layer exposed; I73.9 Peripheral vascular disease, unspecified; I11.0 Hypertensive heart disease with heart failure; I50.9 Heart failure, unspecified; I25.10 Atherosclerotic heart disease of native coronary artery without angina pectoris; E78.00 Pure hypercholesterolemia, unspecified; I48.91 Unspecified atrial fibrillation; F17.200 Nicotine dependence, unspecified, uncomplicated; E07.9 Disorder of thyroid, unspecified; J44.9 Chronic obstructive pulmonary disease, unspecified; D64.9 Anemia, unspecified; G47.30 Sleep apnea, unspecified; M10.9 Gout, unspecified; Z79.02 Long term (current) use of antithrombotics/antiplatelets; Z79.82 Long term (current) use of aspirin; Z79.899 Other long term (current) drug therapy; Z95.1 Presence of aortocoronary bypass graft; Z95.5 Presence of coronary angioplasty implant and graft; Y83.8 Other surgical procedures as the cause of abnormal reaction of the patient, or of later complication, without mention of misadventure at the time of the procedure | CPT/HCPCS: G0463 ==

== ENCOUNTER 2019-06-12 10:45 | Day surgery (SDC) | payer MEDICARE, BC ==
[2019-06-12] MEDS ORDERED: NORCO 10-325 T1 EACH PO (12:46)
== END 2019-06-12 22:48 | disposition home or self-care (01) ==
LOC: WOUND 10:45
DX: T81.89XA Other complications of procedures, not elsewhere classified, initial encounter (principal); L97.512 Non-pressure chronic ulcer of other part of right foot with fat layer exposed; I73.9 Peripheral vascular disease, unspecified; I11.0 Hypertensive heart disease with heart failure; I50.9 Heart failure, unspecified; I25.10 Atherosclerotic heart disease of native coronary artery without angina pectoris; M10.9 Gout, unspecified; E78.00 Pure hypercholesterolemia, unspecified; I48.91 Unspecified atrial fibrillation; D64.9 Anemia, unspecified; J44.9 Chronic obstructive pulmonary disease, unspecified; G47.30 Sleep apnea, unspecified; E07.9 Disorder of thyroid, unspecified; F17.200 Nicotine dependence, unspecified, uncomplicated; Z79.02 Long term (current) use of antithrombotics/antiplatelets; Z79.82 Long term (current) use of aspirin; Z79.899 Other long term (current) drug therapy; Z95.5 Presence of coronary angioplasty implant and graft; Z95.1 Presence of aortocoronary bypass graft; Y83.8 Other surgical procedures as the cause of abnormal reaction of the patient, or of later complication, without mention of misadventure at the time of the procedure
CPT/HCPCS: G0463

== ENCOUNTER 2019-06-13 07:43 | Day surgery (SDC) | payer MEDICARE, BC ==
[~2019-06-13] VITALS: Ht 177.8 cm; Wt 111.0 kg
[~2019-06-13 07:43] MED LIST changes: +NORCO 10-325 T1 EACH PO
--- NOTE | 2019-06-13 15:50 | NUR ---
pt left fem site without tenderness or swelling, no hematoma noted. pt up and ambulatory without difficulty. saline lock out with catheter intact. discharge gone over with pt, verbalizes understanding. instruction gone over with should bleeding occur, to hold firm pressure and call 911. pt to private vehicle per w/c and assist of 1 staff.
== END 2019-06-13 15:00 | disposition home or self-care (01) ==
LOC: MHTC 07:43
DX: I70.238 Atherosclerosis of native arteries of right leg with ulceration of other part of lower leg (principal); I70.248 Atherosclerosis of native arteries of left leg with ulceration of other part of lower leg; L97.819 Non-pressure chronic ulcer of other part of right lower leg with unspecified severity; L97.829 Non-pressure chronic ulcer of other part of left lower leg with unspecified severity; I77.1 Stricture of artery; I48.91 Unspecified atrial fibrillation; I25.10 Atherosclerotic heart disease of native coronary artery without angina pectoris; I10 Essential (primary) hypertension; Z91.041 Radiographic dye allergy status; Z91.048 Other nonmedicinal substance allergy status; Z79.82 Long term (current) use of aspirin; Z79.02 Long term (current) use of antithrombotics/antiplatelets; Z79.899 Other long term (current) drug therapy; Z87.891 Personal history of nicotine dependence
CPT/HCPCS: 37224; 37229; 37233; 75716; 75774; 76937; 85347; 99152; 99153; C1725; C1769; C1885; C1887; C1894; J1200; J1644; J1720; J2250; J3010; J7030; Q9967

== ENCOUNTER 2019-06-19 00:33 | Day surgery (SDC) | payer MEDICARE, BC | END 2019-06-19 22:48 | disposition home or self-care (01) | LOC: WOUND 00:33 | DX: L97.512 Non-pressure chronic ulcer of other part of right foot with fat layer exposed (principal); I10 Essential (primary) hypertension; E78.00 Pure hypercholesterolemia, unspecified; F17.200 Nicotine dependence, unspecified, uncomplicated; I73.9 Peripheral vascular disease, unspecified; Z79.899 Other long term (current) drug therapy; Z79.02 Long term (current) use of antithrombotics/antiplatelets ==

== ENCOUNTER 2019-06-26 00:25 | Day surgery (SDC) | payer MEDICARE, BC | END 2019-06-26 22:36 | disposition home or self-care (01) | LOC: WOUND 00:25 | DX: L97.512 Non-pressure chronic ulcer of other part of right foot with fat layer exposed (principal); I73.9 Peripheral vascular disease, unspecified; I10 Essential (primary) hypertension; E78.00 Pure hypercholesterolemia, unspecified; F17.200 Nicotine dependence, unspecified, uncomplicated; Z79.899 Other long term (current) drug therapy; Z79.02 Long term (current) use of antithrombotics/antiplatelets; Z79.82 Long term (current) use of aspirin ==

== ENCOUNTER 2019-07-03 00:16 | Day surgery (SDC) | payer MEDICARE, BC | END 2019-07-03 23:14 | disposition home or self-care (01) | LOC: WOUND 00:16 | DX: L97.512 Non-pressure chronic ulcer of other part of right foot with fat layer exposed (principal); I73.9 Peripheral vascular disease, unspecified; I10 Essential (primary) hypertension; E78.00 Pure hypercholesterolemia, unspecified; F17.200 Nicotine dependence, unspecified, uncomplicated; Z95.5 Presence of coronary angioplasty implant and graft; Z79.899 Other long term (current) drug therapy; Z79.02 Long term (current) use of antithrombotics/antiplatelets; Z79.82 Long term (current) use of aspirin | CPT/HCPCS: G0463 ==

== ENCOUNTER 2019-07-05 01:17 | Day surgery (SDC) | payer MEDICARE, BC | END 2019-07-05 23:22 | disposition home or self-care (01) | LOC: WOUND 01:17 | DX: L97.512 Non-pressure chronic ulcer of other part of right foot with fat layer exposed (principal); I73.9 Peripheral vascular disease, unspecified; I10 Essential (primary) hypertension; E78.00 Pure hypercholesterolemia, unspecified; F17.200 Nicotine dependence, unspecified, uncomplicated; Z79.899 Other long term (current) drug therapy; Z79.02 Long term (current) use of antithrombotics/antiplatelets; Z79.82 Long term (current) use of aspirin ==

== ENCOUNTER 2019-07-08 00:23 | Day surgery (SDC) | payer MEDICARE, BC | END 2019-07-08 22:46 | disposition home or self-care (01) | LOC: WOUND 00:23 | DX: L97.512 Non-pressure chronic ulcer of other part of right foot with fat layer exposed (principal); I73.9 Peripheral vascular disease, unspecified; I10 Essential (primary) hypertension; E78.00 Pure hypercholesterolemia, unspecified; F17.200 Nicotine dependence, unspecified, uncomplicated; Z79.899 Other long term (current) drug therapy; Z79.02 Long term (current) use of antithrombotics/antiplatelets; Z79.82 Long term (current) use of aspirin ==

== ENCOUNTER 2019-07-10 00:17 | Day surgery (SDC) | payer MEDICARE, BC | END 2019-07-10 23:11 | disposition home or self-care (01) | LOC: WOUND 00:17 | DX: L97.512 Non-pressure chronic ulcer of other part of right foot with fat layer exposed (principal); I73.9 Peripheral vascular disease, unspecified; F17.200 Nicotine dependence, unspecified, uncomplicated; I10 Essential (primary) hypertension; E78.00 Pure hypercholesterolemia, unspecified; Z79.899 Other long term (current) drug therapy; Z79.02 Long term (current) use of antithrombotics/antiplatelets; Z79.82 Long term (current) use of aspirin ==

== ENCOUNTER 2019-07-12 02:23 | Day surgery (SDC) | payer MEDICARE, BC | END 2019-07-12 23:51 | disposition home or self-care (01) | LOC: WOUND 02:23 | DX: L97.512 Non-pressure chronic ulcer of other part of right foot with fat layer exposed (principal); I73.9 Peripheral vascular disease, unspecified ==

== ENCOUNTER 2019-07-15 00:26 | Day surgery (SDC) | payer MEDICARE, BC | END 2019-07-15 23:16 | disposition home or self-care (01) | LOC: WOUND 00:26 | DX: L97.512 Non-pressure chronic ulcer of other part of right foot with fat layer exposed (principal); I73.9 Peripheral vascular disease, unspecified; I10 Essential (primary) hypertension; E78.00 Pure hypercholesterolemia, unspecified; Z79.899 Other long term (current) drug therapy; Z79.02 Long term (current) use of antithrombotics/antiplatelets; Z79.82 Long term (current) use of aspirin ==

== ENCOUNTER 2019-07-17 00:13 | Day surgery (SDC) | payer MEDICARE, BC | END 2019-07-17 22:57 | disposition home or self-care (01) | LOC: WOUND 00:13 | DX: L97.512 Non-pressure chronic ulcer of other part of right foot with fat layer exposed (principal); I73.9 Peripheral vascular disease, unspecified ==

== ENCOUNTER 2019-07-24 00:25 | Day surgery (SDC) | payer MEDICARE, BC | END 2019-07-24 23:00 | disposition home or self-care (01) | LOC: WOUND 00:25 | DX: L97.512 Non-pressure chronic ulcer of other part of right foot with fat layer exposed (principal); I73.9 Peripheral vascular disease, unspecified | CPT/HCPCS: Q4196 ==

== ENCOUNTER 2019-07-31 00:32 | Day surgery (SDC) | payer MEDICARE, BC | END 2019-07-31 22:54 | disposition home or self-care (01) | LOC: WOUND 00:32 | DX: L97.512 Non-pressure chronic ulcer of other part of right foot with fat layer exposed (principal); I73.9 Peripheral vascular disease, unspecified; I10 Essential (primary) hypertension; E78.00 Pure hypercholesterolemia, unspecified; F17.200 Nicotine dependence, unspecified, uncomplicated; Z79.899 Other long term (current) drug therapy; Z79.02 Long term (current) use of antithrombotics/antiplatelets; Z79.82 Long term (current) use of aspirin; R55 Syncope and collapse | CPT/HCPCS: G0463 ==

== ENCOUNTER 2019-07-31 12:16 | Emergency (ER) | payer MEDICARE, BC ==
[~2019-07-31] VITALS: Ht 177.8 cm; Wt 112.5 kg
[2019-07-31 13:02] LABS: BASOPHILS ABSOLUTE AUTO 0.08 K/mm3 (0.00-0.23); BASOPHILS PERCENT AUTO 1 % (0-2); EOSINOPHILS ABSOLUTE AUTO 0.19 K/mm3 (0.00-0.68); EOSINOPHILS PERCENT AUTO 2 % (0-6); Hematocrit 33.9 % (37.0-53.0); Hemoglobin 11.2 g/dL (13.5-17.5); IMMATURE GRAN PERCENT AUTO 1 % (0-1); LYMPHOCYTES ABSOLUTE AUTO 1.29 K/mm3 (0.84-5.20); LYMPHOCYTES PERCENT AUTO 11 % (21-46); MONOCYTES ABSOLUTE AUTO 1.01 K/mm3 (0.16-1.47); MONOCYTES PERCENT AUTO 9 % (4-13); Mean Corpuscular HGB 35.9 pg (26.0-34.0); Mean Corpuscular Volume 109 fL (80-100); NEUTROPHILS ABSOLUTE AUTO 8.88 K/mm3 (1.96-9.15); NEUTROPHILS PERCENT AUTO 77 % (41-73); Platelet Count 211 K/mm3 (150-400); RDW Coefficient Variation 15.9 % (11.7-14.2); RDW Standard Deviation 64.1 fL (35.1-46.3); Red Blood Cell Count 3.12 M/mm3 (4.30-5.90); White Blood Cell Count 11.55 K/mm3 (4.00-11.30)
[2019-07-31 13:31] LABS: Alanine Aminotransfer (ALT/SGP 76 U/L (12-78); Albumin, Blood 3.5 g/dL (3.4-5.0); Albumin/Globulin Ratio 0.8 (0.8-1.8); Alk Phos 110 U/L (50-136); Anion Gap 11 mmol/L (6-16); Aspartate Aminotrans (AST/SGOT 74 U/L (12-37); Bilirubin, Total 0.6 mg/dL (0.1-1.0); Blood Urea Nitrogen 27 mg/dL (8-24); Bun/Creatinine Ratio 10.5 (12.0-20.0); CO2, Blood 23 mmol/L (21-32); Calcium, Blood 9.5 mg/dL (8.5-10.1); Chloride, Blood 98 mmol/L (98-108); Creatinine, Blood 2.57 mg/dL (0.60-1.20); Globulin, Blood 4.2 g/dL (2.2-4.0); Glomerular Filtration Rate 27 (60-); Glucose, Blood 113 mg/dL (70-99); Potassium, Blood 4.8 mmol/L (3.5-5.5); Sodium, Blood 132 mmol/L (136-145); Total Protein, Blood 7.7 g/dL (6.4-8.2); Troponin I <0.015 ng/mL (0.000-0.040)
== END 2019-07-31 14:10 | disposition home or self-care (01) ==
LOC: ER 12:16
PROVIDERS: Physician Assistant
DX: R55 Syncope and collapse (principal); I13.0 Hypertensive heart and chronic kidney disease with heart failure and stage 1 through stage 4 chronic kidney disease, or unspecified chronic kidney disease; I50.32 Chronic diastolic (congestive) heart failure; I50.22 Chronic systolic (congestive) heart failure; N18.3 Chronic kidney disease, stage 3 (moderate); I25.10 Atherosclerotic heart disease of native coronary artery without angina pectoris; E78.5 Hyperlipidemia, unspecified; D64.9 Anemia, unspecified; I48.0 Paroxysmal atrial fibrillation; E03.9 Hypothyroidism, unspecified; I73.9 Peripheral vascular disease, unspecified; G47.30 Sleep apnea, unspecified; G47.33 Obstructive sleep apnea (adult) (pediatric); Z87.891 Personal history of nicotine dependence; Z88.8 Allergy status to other drugs, medicaments and biological substances; Z91.048 Other nonmedicinal substance allergy status; Z79.82 Long term (current) use of aspirin; Z79.899 Other long term (current) drug therapy
CPT/HCPCS: 36415; 71046; 80053; 83880; 84484; 85025; 93005; 93010; 96360; 99284-25; J7030

== ENCOUNTER 2019-08-02 12:13 | Emergency (ER) | payer MEDICARE, BC ==
[~2019-08-02] VITALS: Ht 190.5 cm; Wt 127.0 kg
[2019-08-02 12:41] LABS: Hematocrit 35.2 % (37.0-53.0); Hemoglobin 10.7 g/dL (13.5-17.5); Mean Corpuscular HGB 35.1 pg (26.0-34.0); Mean Corpuscular HGB Conc 30.4 g/dL (31.5-36.5); Mean Platelet Volume 11.5 fL (9.1-12.4); NRBC ABSOLUTE 0.14 K/mm3 (0.00-0.02); Platelet Count 166 K/mm3 (150-400); RDW Coefficient Variation 15.8 % (11.7-14.2); RDW Standard Deviation 66.8 fL (35.1-46.3); Red Blood Cell Count 3.05 M/mm3 (4.30-5.90); White Blood Cell Count 13.78 K/mm3 (4.00-11.30)
[2019-08-02 12:54] LABS: Alanine Aminotransfer (ALT/SGP 60 U/L (12-78); Albumin, Blood 3.1 g/dL (3.4-5.0); Albumin/Globulin Ratio 0.8 (0.8-1.8); Alk Phos 106 U/L (50-136); Anion Gap 18 mmol/L (6-16); Aspartate Aminotrans (AST/SGOT 81 U/L (12-37); Bilirubin, Total 0.5 mg/dL (0.1-1.0); Blood Urea Nitrogen 29 mg/dL (8-24); Bun/Creatinine Ratio 11.6 (12.0-20.0); CO2, Blood 18 mmol/L (21-32); Chloride, Blood 96 mmol/L (98-108); Creatinine, Blood 2.51 mg/dL (0.60-1.20); Glomerular Filtration Rate 27 (60-); Glucose, Blood 301 mg/dL (70-99); International Normalized Ratio 1.06; Prothrombin Time Results 11.3 Sec (9.7-11.5); Sodium, Blood 132 mmol/L (136-145); Total Protein, Blood 7.1 g/dL (6.4-8.2); Troponin I <0.015 ng/mL (0.000-0.040)
[2019-08-02 13:00] LABS: Mean Corpuscular Volume 115 fL (80-100)
[2019-08-02 13:17] LABS: PCO2 Arterial 68.8 mmHg (35-45); PO2 Arterial 57.9 mmHg (80-100)
[2019-08-02 13:19] LABS: pH Blood Arterial 6.92 (7.35-7.45)
[2019-08-02 13:27] LABS: BAND PERCENT MAN 3 % (0-8); BASOPHILS PERCENT MAN 0 % (0-2); EOSINOPHILS PERCENT MAN 0 % (0-6); LYMPHOCYTES PERCENT MAN 24 % (21-46); MONOCYTES PERCENT MAN 8 % (4-13); MYELOCYTE ABSOLUTE MAN 0.27 K/mm3 (0.00-0.00); MYELOCYTE PERCENT MAN 2 % (0-0); NEUTROPHILS ABSOLUTE MAN 9.09 K/mm3 (1.96-9.15); SEG NEUTROPHILS PERCENT MAN 63 % (41-73); TOTAL CELLS COUNTED 100
[2019-08-02 14:56] LABS: PCO2 Arterial 60.5 mmHg (35-45)
== END 2019-08-02 14:58 ==
LOC: ER 12:13
PROVIDERS: Emergency Medicine
DX: I46.9 Cardiac arrest, cause unspecified (principal); A41.9 Sepsis, unspecified organism; N18.3 Chronic kidney disease, stage 3 (moderate); E78.5 Hyperlipidemia, unspecified; I13.0 Hypertensive heart and chronic kidney disease with heart failure and stage 1 through stage 4 chronic kidney disease, or unspecified chronic kidney disease; I50.42 Chronic combined systolic (congestive) and diastolic (congestive) heart failure; E03.9 Hypothyroidism, unspecified; I48.0 Paroxysmal atrial fibrillation; F17.210 Nicotine dependence, cigarettes, uncomplicated; Z79.899 Other long term (current) drug therapy
CPT/HCPCS: 31500; 31720; 36415; 36556; 36600; 51702; 71045; 80053; 82803; 83690; 84484; 85025; 85610; 85730; 86850; 86900; 86901; 92950; 93005; 93010; 93308; 94002; 94770; 96365-59; 96366-59; 96368; 96375-59; 96376-59; 99291-25; C1751; J0171; J0461; J2543; J3370; J7050; J7060; J7070